=== PATIENT | female | born 1965 | race Caucasian/White ===

== ENCOUNTER 2016-07-26 06:29 | Emergency (ER) | payer SELFPAY ==
[~2016-07-26 06:29] MED LIST: ABILIFY10 MG PO; ANORO ELLIPTA 62.1 - IH; DELTASONE DPS10 MG PO; DUONEB DPS3 ML IH; EFFEXOR XR DPS150 MG PO; HABITROL DPS21 MG TP; HYDROCODONE 10M10 MG PO; LAMICTAL DPS100 MG PO; LEVAQUIN DPS500 MG PO; PEPCID DPS20 MG PO; PERCOCET 10 DPS1 TAB PO; TRIBENZOR 40-51 EACH PO; XANAX DPS0.25 MG PO
--- NOTE | 2016-07-28 19:16 | ER ---
ADMIT: 07/26/2016 RM/LOC: ER [facility] MR#: [id number] [address] [id number] BRIANA ORTIZ [address] [place] [id number] Emergency Room Report SEX: F AGE: 50 : 1965 DATE: 07/26/2016 The patient is a 50-year-old female, who was brought to the ER with cardiopulmonary arrest. Per chart, the patient has history of hypertension, pulmonary fibrosis, acute respiratory failure with hypoxia, COPD, fibromyalgia, and bipolar and per , the patient has a history of heart problems. Per , the patient had a few hours of chest pain and she did not follow up with the hospital and by the time found the patient, she was unresponsive. Per EMS, before getting to the hospital, they have been doing CPR for more than 30 minutes. Three rounds of epi were given to the patient and at 1st, the patient had shockable rhythm and after discharge, the patient went to asystole. The patient was intubated en route. In the ER, the patient had dilated pupils, knowing she already had multiple episodes of epinephrine. CPR was continued. The patient was asystole all the way in the ER. Multiple rounds of epinephrine were administered and the patient also received 1 dose of sodium bicarbonate. After more than 40 minutes totally CPR, code was called. The time of was 6:39. Spouse was informed in the ER about . Please refer to the CPR papers and code papers for further information. Rodney Treviño MD/ alexander JOB #: [id number] CC: Rodney Treviño MD, Attending Physician Shad Smallwood MD, Family Physician
== END 2016-07-26 14:00 | disposition expired ==
LOC: ER 06:29
DX: I46.9 Cardiac arrest, cause unspecified (principal)